=== PATIENT | female | born 2000 | race Caucasian/White ===

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

== ENCOUNTER 2018-06-26 07:46 | Outpatient (CLI) | payer BC ==
--- NOTE | 2018-06-26 10:18 | MRI Report ---
Reason: HEADACHE Procedure Date: 06/26/2018 Accession Number: [id number] / [id number] Procedure: MRI - Brain W/O CPT Code: FULL RESULT: EXAM: MRI BRAIN WITHOUT CONTRAST EXAM DATE: 06/26/2018 09:12 AM. CLINICAL HISTORY: 2 year history of migraine headaches. COMPARISON: None. TECHNIQUE: Multiplanar, multisequence T1-weighted and fluid-sensitive MR sequences of the brain were performed. Sequences optimized for routine evaluation. Other: None. IV Contrast: None. FINDINGS: Brain Volume: Normal for age. Parenchyma/Dura: No mass, acute infarct or hemorrhage. No white matter lesions identified. 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 Ventricles/Cisterns: No hydrocephalus. No abnormal extra-axial fluid collection or hemorrhage. Orbits: Symmetric and unremarkable. Sella Turcica: The pituitary gland, cavernous sinuses, suprasellar cistern and optic chiasm are unremarkable. IAC: Symmetric and unremarkable. Vasculature: Normal signal flow void is seen in the major arterial structures at the skull base. Sinuses: Near complete opacification of the maxillary sinuses by severe appearing circumferential multilobulated mucosal thickening with additional central retained secretions. Extensive patchy and confluent bilateral ethmoid sinus opacification right worse than left. Prominent right frontal sinus mucosal thickening. Fluid signal opacification of the left anterior sphenoid sinus by probable retention cyst versus polyp. Mild right sphenoid mucosal thickening. Grossly clear mastoids. Bones: No focal pathologic appearing marrow signal changes. Other: None. IMPRESSION: 1. No acute intracranial abnormality. Normal MRI appearance of the brain. 2. Moderate to severe pansinus disease. Extensive maxillary and right frontoethmoidal opacification. Probable left sphenoid retention cyst or polyp. 3. Clear mastoids. RADIA
== END 2018-06-26 07:47 | disposition home or self-care (01) ==
LOC: DI 07:46
PROVIDERS: ATTEND Family Medicine
DX: J32.4 Chronic pansinusitis (principal); R51 Headache
CPT/HCPCS: 70551

== ENCOUNTER 2018-08-13 07:56 | Outpatient (CLI) | payer BC ==
[2018-08-13 13:14] LABS: ALBUMIN/GLOBULIN RATIO 1.3 (1.0-2.2); BILIRUBIN,TOTAL 0.6 mg/dL (0.2-1.0); CALCIUM 9.1 mg/dL (8.5-10.3); CREATININE 0.6 mg/dL (0.4-1.0); TOTAL PROTEIN 7.2 g/dL (6.7-8.2)
== END 2018-08-13 07:57 | disposition home or self-care (01) ==
LOC: LAB.WCP 07:56
PROVIDERS: ATTEND Family Medicine
DX: B35.1 Tinea unguium (principal)
CPT/HCPCS: 36415; 80053

== ENCOUNTER 2018-12-23 11:10 | Emergency (ER) | payer BC ==
[2018-12-23] MEDS ORDERED: METOCLOPRAMIDE 10 MG/2 ML VIAL IVP STA (13:57)
[2018-12-23] MEDS ORDERED: KETOROLAC 30 MG/ML VIAL IVP STA (13:57)
[2018-12-23] MEDS ORDERED: diphenhydrAMINE INJ 50 MG/ML VIAL IVP STA (13:58)
--- NOTE | 2018-12-23 14:26 | ED Physician Documentation ---
PD HPI HEADACHE - Stated complaint Stated Complaint: MIGRAINE - Chief complaint Chief Complaint: Neuro - History obtained from History obtained from: Patient, Family - History of Present Illness Timing - onset: How many days ago (2) Timing - onset during: Rest, Other (woke up and vomited once) Timing - duration: Days (2) Timing - details: Abrupt onset, Still present, Still present in ED, Other (gradually worsening) Severity Comments: moderate Worst headache ever?: Worst headache ever? (no) Location: Front, Right Quality: Throbbing. No: Thunderclap Associated symptoms: Nausea, Vision changes (reports spots in right visual field that come and go). No: Fever, Stiff neck, Vomiting, Weakness, Numbness, Syncope, Seizure, Eye pain Improved by: Rest, Dark room Worsened by: Light Contributing factors: No: Anticoagulated, Possible carbon monoxide, Hypertension, Recent illness, Trauma Similar symptoms before: Diagnosis (migraine headache) Recently seen: Not recently seen - Treatment prior to arrival Treatment prior to arrival: Pt took excedrin and triptan without relief Review of Systems Ten Systems: 10 systems reviewed and negative Constitutional: denies: Fever, Chills Eyes: reports: Photophobia. denies: Loss of vision, Decreased vision Nose: reports: Reviewed and negative Cardiac: reports: Reviewed and negative GI: reports: Nausea. denies: Vomiting Skin: reports: Reviewed and negative Neurologic: reports: Headache. denies: Focal weakness, Numbness, Difficulty speaking, Syncope, Seizure, Confused, Altered mental status, Head injury, LOC Psychiatric: reports: Reviewed and negative PD PAST MEDICAL HISTORY - Past Medical History Past Medical History: Yes Cardiovascular: None Respiratory: None Endocrine/Autoimmune: None GI: None MANAGER ENDOSCOPY: None : None HEENT: None Musculoskeletal: None Derm: None - Past Surgical History Past Surgical History: No - Present Medications Home Medications: Ambulatory Orders Medication Instructions Recorded Confirmed Diazepam [Valium] 2 mg PO Q8H PRN #10 tablet 03/15/16 03/16/16 Ibuprofen [Motrin] 400 mg PO Q6H PRN #20 tablet 03/15/16 03/16/16 RX: Lidocaine Patch 5% [Lidoderm 1 each TOP DAILY PRN #10 patch 03/15/16 03/16/16 Patch] RX: HYDROcod/ACETAM 5/325 [[place] 1 - 2 ea PO Q6H PRN #15 tablet 03/16/16 5/325] diazePAM [Valium] 5 mg PO TID PRN #15 tablet 03/16/16 Ondansetron Odt [Zofran] 4 mg TL Q6H PRN #15 tablet 10/21/17 Sumatriptan Succinate [Imitrex] 100 mg PO ONCE PRN #6 tablet 10/21/17 - Allergies Allergies/Adverse Reactions: Allergies Allergy/AdvReac Type Severity Reaction Status Date / Time No Known Drug Allergies Allergy Verified 12/23/18 11:25 - Social History Does the pt smoke?: No Smoking Status: Never smoker Does the pt drink ETOH?: No Does the pt have substance abuse?: No - Immunizations Immunizations are current?: Yes - POLST Patient has POLST: No PD ED PE NORMAL - Vitals Vital signs reviewed: Yes - General General: Alert and oriented X 3, No acute distress, Well developed/nourished - HEENT HEENT: Atraumatic, Pharynx benign - Neck Neck: Supple, no meningeal sign, No JVD - Cardiac Cardiac: RRR, No murmur - Respiratory Respiratory: No respiratory distress - Abdomen Abdomen: Soft, Non tender, Non distended - Female Female : Deferred - Rectal Rectal: Deferred - Derm Derm: Normal color, Warm and dry, No rash - Neuro Neuro: Alert and oriented X 3, access director 2-12 intact, No motor deficit, No sensory deficit, Normal speech Eye Opening: Spontaneous Motor: Obeys Commands Verbal: Oriented GCS Score: 15 - Psych Psych: Normal mood, Normal affect PD ED PE EXPANDED - Neuro Neuro: Normal motor, Normal Sensation, Normal Speech, Normal gait, Normal finger nose, Normal speech Results - Vitals Vitals: Vital Signs - 24 hr 12/23/18 12/23/18 11:23 14:58 Temperature 36.7 C Heart Rate 78 78 Respiratory 16 16 Rate Blood Pressure 133/90 H 115/63 O2 Saturation 100 100 Oxygen O2 Source Room air - Labs Labs: Laboratory Tests 12/23/18 14:34 Ur Specific [place] 1.010 Urine HCG, Qual NEGATIVE PD MEDICAL DECISION MAKING - ED course Complexity details: re-evaluated patient, considered differential, d/w patient, d/w family ED course: ddx- tension headache, migraine headache, SAH, sinus headache, meningitis 18 y/o F with headache for 2 days of abrupt onset but gradually worsening not thunderclap thus doubt SAH, hx of migraines, similar to previous headaches, no improvement with home meds - triptans and excedrin. Normal neuro exam, afebrile Pt given [place] cocktail of reglan, benadryl and toradol with complete resolution. I do not feel that emergent imaging or labs/LP are indicated at this time Pt given return precautions if worsening symptoms or new concerns. Departure - Departure Disposition: 01 Home, Self Care Clinical Impression: Migraine Condition: Stable Record reviewed to determine appropriate education?: Yes Instructions: ED Headache Migraine Follow-Up: Mildred Mendoza, [Primary Care Provider] - As Needed Comments: Your neurologic examination here today was normal. Your symptoms were consistent with a migraine. You were given toradol, reglan and benadryl for your symptoms which improved your headache. You should take your regular headache medications at home to prevent migraines. Discharge Date/Time: 12/23/18 15:32
[2018-12-23 14:40] LABS: HCG UR QUAL NEGATIVE
[2018-12-23 14:59] VITALS: BP 115/63
== END 2018-12-23 15:32 | disposition home or self-care (01) ==
LOC: ED 11:10
DX: G43.909 Migraine, unspecified, not intractable, without status migrainosus (principal)
CPT/HCPCS: 81025; 96374; 99283; 99284; J1200; J2765

== ENCOUNTER 2019-05-01 14:34 | Outpatient (CLI) | payer BC ==
[2019-05-01 18:55] LABS: BASOPHILS % (AUTO) 0.7 %; EOSINOPHILS # (AUTO) 0.1 10^3/uL (0.0-0.7); EOSINOPHILS % (AUTO) 1.9 %; HGB - HEMOGLOBIN 11.8 g/dL (12.0-16.0); LYMPHOCYTES # (AUTO) 1.8 10^3/uL (1.5-3.5); LYMPHOCYTES % (AUTO) 42.8 %; MEAN CORPUSCULAR HEMOGLOBIN 27.8 pg (27.0-31.0); MEAN CORPUSCULAR HGB CONC 32.2 g/dL (32.0-36.0); MEAN CORPUSCULAR VOLUME 86.1 fL (81.0-99.0); MEAN PLATELET VOLUME 10.8 fL (7.9-10.8); MONOCYTES # (AUTO) 0.5 10^3/uL (0.0-1.0); MONOCYTES % (AUTO) 10.6 %; NEUTROPHILS # (AUTO) 1.9 10^3/uL (1.5-6.6); NEUTROPHILS % (AUTO) 43.8 %; PLT - PLATELET COUNT 241 10^3/uL (130-450); RED BLOOD COUNT 4.25 10^6/uL (4.20-5.40); RED CELL DISTRIBUTION WIDTH 14.3 % (12.0-15.0); WHITE BLOOD COUNT 4.2 x10^3/uL (4.8-10.8)
== END 2019-05-01 23:59 | disposition home or self-care (01) ==
LOC: LAB.WCP 14:34
PROVIDERS: ATTEND Nurse Practitioner Family
DX: G89.29 Other chronic pain (principal)
CPT/HCPCS: 36415; 85025; 85651

== ENCOUNTER 2019-12-16 15:45 | Outpatient (CLI) | payer BC, OTHER | END 2019-12-16 23:59 | disposition home or self-care (01) | LOC: LAB.R 15:45 | PROVIDERS: ATTEND Family Medicine | DX: R21 Rash and other nonspecific skin eruption (principal) | CPT/HCPCS: 87081 ==

== ENCOUNTER 2020-03-20 07:23 | Outpatient (CLI) | payer OTHER ==
--- NOTE | 2020-03-20 12:08 | Ultrasound Report ---
PROCEDURE: Abdomen Limited INDICATIONS: RUQ ABD PAIN TECHNIQUE: Real-time focused scanning was performed of the abdomen, with image documentation. COMPARISON: CT abdomen/pelvis April 02, 2014 FINDINGS: Liver length of 18.6 cm with Dedra's lobe variation. Normal echogenicity of the liver parenchyma. Gallbladder is partially distended with wall thickness of 2 mm, within normal limits. On the anterior wall of the gallbladder is a nonmobile echogenic structure consistent with a polyp. No pericholecyst ic fluid. Common bile duct diameter of 3 mm, within normal limits. Because portions of the pancreas are within normal limits. Right kidney measures 11 cm in length. No hydronephrosis. Renal cortical is 1.3 cm. Inferior vena cava is patent. IMPRESSION: No gallstones or findings of acute cholecystitis. 5 mm polyp in the gallbladder. Reviewed by: Zackery Marsh on 03/20/2020 11:07 AM TOMER Approved by: Zackery Marsh on 03/20/2020 11:07 AM TOMER Station ID: [id number]
== END 2020-03-20 07:24 | disposition home or self-care (01) ==
LOC: DI 07:23
PROVIDERS: ATTEND Family Medicine
DX: K82.4 Cholesterolosis of gallbladder (principal)
CPT/HCPCS: 76705